=== PATIENT | male | born 1960 | race Caucasian/White ===

== ENCOUNTER 2023-09-15 14:30 | Emergency (ER) | payer MEDICARE ==
[~2023-09-15] VITALS: Ht 182.9 cm; Wt 106.6 kg
[2023-09-15 14:56] VITALS: BP 132/75
[2023-09-15] MEDS ORDERED: CEPH500 PO (20:02)
== END 2023-09-15 20:08 | disposition home or self-care (01) ==
LOC: ER 14:30
DX: S61.411A Laceration without foreign body of right hand, initial encounter (principal); W26.8XXA Contact with other sharp object(s), not elsewhere classified, initial encounter; Y93.89 Activity, other specified; Z88.6 Allergy status to analgesic agent
CPT/HCPCS: 12005; 99282-25; A9270